=== PATIENT | female | born 1955 | race Caucasian/White ===

== ENCOUNTER 2021-09-17 09:20 | Day surgery (SDC) | payer BC, OTHER, SELFPAY ==
[~2021-09-17] VITALS: Ht 162.6 cm; Wt 82.6 kg
[~2021-09-17 09:20] MED LIST: CEFAZOLIN SOD 2 GM in D5W 50 ML IV ONE
[2021-09-17] MEDS ORDERED: SCOPOLAMINE HYDROBROMIDE 1 MG PATCH .72 H (TRANSDERM-SCOP) TD ONE (09:41)
[2021-09-17] MEDS ORDERED: PROPOFOL 200MG/ 20ML VIAL (DIPRIVAN) IV ONE (11:20)
[2021-09-17] MEDS ORDERED: LR 1,000 ML IV.SOLN IV ONE (11:20)
[2021-09-17] MEDS ORDERED: MIDAZOLAM HCL 5 MG/5 ML VIAL IVP ONE (11:20)
[2021-09-17] MEDS ORDERED: SUCCINYLCHOLINE CHLORIDE 20 MG/ML(QUELICIN) IVP ONE (11:20)
[2021-09-17] MEDS ORDERED: MEPERIDINE 50 MG/ML VIAL IM ONE (11:20)
[2021-09-17] MEDS ORDERED: WATER FOR IRRIGATION,STERILE 1,000 ML IRRIG.SOLN IR ONE (11:20)
[2021-09-17] MEDS ORDERED: fentaNYL CITRATE/PF 100 MCG/2 ML AMP IVP ONE (11:20)
[2021-09-17] MEDS ORDERED: DEXAMETHASONE SOD PHOSPHATE 4 MG/ML VIAL IVP ONE (11:20)
[2021-09-17] MEDS ORDERED: NS 1000 ML IV.SOLN IV ONE (11:20)
[2021-09-17] MEDS ORDERED: ONDANSETRON HCL 4 MG/2 ML VIAL IVP ONE (11:20)
[2021-09-17] MEDS ORDERED: BUPIVACAINE /EPINEPHRINE/PF 0.5% 30 ML VIAL INJ ONE (11:20)
[2021-09-17] MEDS ORDERED: SEVOFLURANE 15 MIN GAS INH ONE (11:20)
[2021-09-17] MEDS ORDERED: SUGAMMADEX SODIUM 200 MG/2 ML VIAL IV ONE (11:20)
[2021-09-17] MEDS ORDERED: LR 1,000 ML IV SCH (12:30)
[2021-09-17] MEDS ORDERED: KETOROLAC TROMETHAMINE 30 MG VIAL IVP PRN (12:30)
[2021-09-17] MEDS ORDERED: MEPERIDINE HCL/PF 25 MG/ML DISP.SYRIN IVP PRN (12:30)
[2021-09-17] MEDS ORDERED: METOCLOPRAMIDE HCL 10 MG/2 ML VIAL IVP PRN (12:30)
[2021-09-17] MEDS ORDERED: HYDROmorphone 1 MG/ML INJ. CARTRIDGE IVP PRN (12:30)
[2021-09-17] MEDS ORDERED: ONDANSETRON HCL 4 MG/2 ML VIAL IVP PRN (12:30)
[2021-09-17 16:29] VITALS: BP_SYST 141
== END 2021-09-17 16:55 | disposition home or self-care (01) ==
LOC: SDS 09:20 → SMU 09:21 → SDS 16:55
PROVIDERS: ATTEND Surgery
DX: K80.10 Calculus of gallbladder with chronic cholecystitis without obstruction (principal); R10.11 Right upper quadrant pain; R59.0 Localized enlarged lymph nodes; I10 Essential (primary) hypertension; E78.5 Hyperlipidemia, unspecified; E03.9 Hypothyroidism, unspecified; K21.9 Gastro-esophageal reflux disease without esophagitis; E66.9 Obesity, unspecified; Z68.31 Body mass index [BMI] 31.0-31.9, adult; Z79.899 Other long term (current) drug therapy; Z20.822 Contact with and (suspected) exposure to COVID-19
CPT/HCPCS: 38531; 47563; 74300; 88304; 88305; 88341; 88342; 88361; C1727; C1758; J0330; J0690; J1100; J2175; J2250; J2405; J2704; J3010; J3490 ×2; J7030; J7060; J7120; U0003; 76000

== ENCOUNTER 2021-10-23 13:24 | Day surgery (SDC) | payer BC, OTHER, SELFPAY ==
[~2021-10-23] VITALS: Ht 162.6 cm; Wt 82.6 kg
[2021-10-23] MEDS ORDERED: VITD2000 PO (15:22)
[2021-10-23] MEDS ORDERED: ASCO500T20 PO (15:22)
[2021-10-23] MEDS ORDERED: MAGN400T10 PO (15:22)
[2021-10-23] MEDS ORDERED: ZINC50TA69 PO (15:22)
[2021-10-23] MEDS ORDERED: LOVA40TA75 PO (15:22)
[2021-10-23] MEDS ORDERED: LISI10TA29 PO (15:22)
[2021-10-23] MEDS ORDERED: ACET325C6 PO (15:22)
[2021-10-23] MEDS ORDERED: LEVO25TA7 PO (15:22)
[2021-10-23] MEDS ORDERED: VITA1CAP PO (15:22)
[2021-10-23] MEDS ORDERED: VITA-219 PO (15:22)
[2021-10-23] MEDS ORDERED: METOCLOPRAMIDE HCL 10 MG/2 ML VIAL IVP PRN (15:45)
[2021-10-23] MEDS ORDERED: fentaNYL CITRATE/PF 100 MCG/2 ML AMP IVP PRN ×2 (15:45)
[2021-10-23] MEDS ORDERED: ONDANSETRON HCL 4 MG/2 ML VIAL IVP PRN (15:45)
[2021-10-23] MEDS ORDERED: fentaNYL CITRATE/PF 100 MCG/2 ML AMP ONE (17:01)
[2021-10-23 17:35] VITALS: BP_SYST 132
--- NOTE | 2021-10-23 17:35 | NUR ---
PACU Received patient from PACU, report from Mullen at bedside. Vital signs stable. Will monitor patient until ready for discharge; awaiting urination. Patient's to be notified for discharge. ABD pad in place to right groin. BRANT drain draining < 5 mL bright red blood. Call light in reach, bed locked in lowest position. Encouraged to call.
--- NOTE | 2021-10-23 18:51 | NUR ---
Closing Notes Patient awake, eating ice chips. Does not want any other fluids at this time. Instructed to call for toileting. Call light in reach, bed locked in lowest position. Will monitor and endorse to night nurse.
[2021-10-23 19:34] VITALS: BP_SYST 144
--- NOTE | 2021-10-23 19:50 | NUR ---
PT IS INSTRUCTED ON HOW TO DRAIN BRANT DRAIN- PT VERBALIZED UNDERSTANDING.
--- NOTE | 2021-10-23 20:08 | NUR ---
D/C Patient Patient given medication reconciliation form and D/C instructions. Exit Care provided. Patient verbalized understanding. MD discussed with patient the results and treatment provided. Ambulatory with steady gait for discharge to home. Patient in stable condition, ID band removed. IV catheter removed, intact and dressing applied, no active bleeding.Med. rec.is given. Patient educated on pain management. All belongings sent with patient.
== END 2021-10-23 19:55 | disposition home or self-care (01) ==
LOC: SDS 13:24 → SMU 13:29 → SDS 19:55
PROVIDERS: ATTEND Surgery
DX: L76.34 Postprocedural seroma of skin and subcutaneous tissue following other procedure (principal); I89.9 Noninfective disorder of lymphatic vessels and lymph nodes, unspecified; E11.9 Type 2 diabetes mellitus without complications; Z20.822 Contact with and (suspected) exposure to COVID-19; Z79.899 Other long term (current) drug therapy
CPT/HCPCS: 10140; 36415; 87070; 87081; 87426; J0690; J3010; J7060; 87075-TC